=== PATIENT | female | born 1990 | race Caucasian/White ===

== ENCOUNTER 2016-10-04 11:23 | Emergency (ER) | payer BC ==
--- NOTE | 2016-10-04 15:08 | RAD ---
HISTORY: Fall onto left knee COMPARISONS: None VIEWS: 4, Frontal, lateral, axial, and oblique views of the left kidney FINDINGS: BONE DENSITY: Normal. BONES: There is no displaced fracture. JOINTS: There is no arthropathy. There is no suprapatellar joint effusion or lipohemarthrosis. ALIGNMENT: There is no dislocation. SOFT TISSUES: Unremarkable. OTHER FINDINGS: None. IMPRESSION: NO ACUTE OSSEOUS INJURY. IF SYMPTOMS PERSIST, RECOMMEND REPEAT IMAGING.
--- NOTE | 2016-10-04 15:18 | ED ---
Skin Complaint - HPI Summary HPI Summary: Patient presents with left knee laceration with surrounding erythema and knee pain after a fall yesterday. She did not seek care at that time. Laceration is 3cm in length by .4cm in depth. Not able to suture d/t time of injury. Knee pain. She is unable to fully flex at the knee d/t pain. There is marked erythema surrounding the laceration without drainage from the lac. Denies aches , chills or sweats. - History of Current Complaint Chief Complaint: UCLowerExtremity Time Seen by Provider: 10/04/16 14:16 Stated Complaint: KNEE LAC Hx Obtained From: Patient Hx Last Menstrual Period: 09/27/16 Onset/Duration: Started Days Ago Skin Exposure Onset/Duration: Days Ago Timing: Constant Onset Severity: Mild Current Severity: Mild Pain Intensity: 5 Pain Scale Used: 0-10 Numeric Skin Location: Leg - knee Character: Pain, Redness, Painful Aggravating Symptom(s): Nothing Alleviating Symptom(s): Nothing Associated Signs & Symptoms: Negative Related History: Trauma - Allergy/Home Medications Allergies/Adverse Reactions: Allergies Allergy/AdvReac Type Severity Reaction Status Date / Time No Known Allergies Allergy Verified 10/04/16 13:35 Home Medications: Home Medications Ibuprofen [Advil] 1 tab PO Q6HR PRN 10/04/16 [History Confirmed 10/04/16] PMH/Surg Hx/FS Hx/Imm Hx Previously Healthy: Yes Endocrine/Hematology History: Denies: Hx Diabetes, Hx Thyroid Disease Cardiovascular History: Denies: Hx Congestive Heart Failure, Hx Deep Vein Thrombosis, Hx Hypertension , Hx Myocardial Infarction, Hx Pacemaker/ICD Respiratory History: Denies: Hx Asthma, Hx Chronic Obstructive Pulmonary Disease (COPD), Hx Pneumonia, Hx Pulmonary Embolism GI History: Denies: Hx Gall Bladder Disease, Hx Gastrointestinal Bleed, Hx Ulcer, Hx Urosepsis History: Denies: Hx Kidney Stones, Hx Renal Disease Neurological History: Denies: Hx Dementia, Hx Migraine, Hx Seizures, Hx Transient Ischemic Attacks (TIA) Psychiatric History: Denies: Hx Anxiety, Hx Depression, Hx Schizophrenia, Hx Bipolar Disorder - Surgical History Surgery Procedure, Year, and Place: LEFT OVARIAN CYST; WISDOM TEETH - Immunization History Hx Pertussis Vaccination: No Immunizations Up to Date: Unable to Obtain/Confirm Infectious Disease History: No Infectious Disease History: Denies: Hx Clostridium Difficile, Hx Hepatitis, Hx Human Immunodeficiency Virus (HIV), Hx of Known/Suspected MRSA, Hx Shingles, Hx Tuberculosis, Hx Known/ Suspected VRE, Hx Known/Suspected VRSA, History Other Infectious Disease, Traveled Outside the [place] in Last 30 Days - Family History Known Family History: Positive: Unknown - Social History Occupation: Unemployed Lives: With Family Alcohol Use: Occasionally Hx Substance Use: No Substance Use Type: Reports: None Hx Tobacco Use: No Smoking Status (MU): Never Smoked Tobacco Review of Systems Constitutional: Negative Eyes: Negative Cardiovascular: Negative Respiratory: Negative Positive: no symptoms reported, see HPI Positive: Arthralgia Positive: Rash - surrounding erythema, Other - 3cm laceration Neurological: Negative Psychological: Normal All Other Systems Reviewed And Are Negative: Yes Physical Exam Triage Information Reviewed: Yes Vital Signs On Initial Exam: Initial Vitals Temp Pulse Resp BP Pulse Ox 98.7 F 97 16 121/72 98 10/04/16 13:31 10/04/16 13:31 10/04/16 13:31 10/04/16 13:31 10/04/16 13:31 Vital Signs Reviewed: Yes Appearance: Positive: Well-Appearing, No Pain Distress, Well-Nourished Skin: Positive: Warm, Skin Color Reflects Adequate Perfusion, Other - erythema surrounding 3cm laceration to the left anterior knee with no purulent discharge ; warmth; non-pruritic Eyes: Positive: Normal, YULIA Neck: Positive: Supple, Nontender, No Lymphadenopathy Respiratory/Lung Sounds: Positive: Clear to Auscultation, Breath Sounds Present Cardiovascular: Positive: Normal, RRR, Pulses are Symmetrical in both Upper and Lower Extremities Musculoskeletal: Positive: Normal, Strength/ROM Intact Neurological: Positive: Sensory/Motor Intact, Alert, Oriented to Person Place, Time Psychiatric: Positive: Normal AVPU Assessment: Alert Diagnostics - Vital Signs Vital Signs Temp Pulse Resp BP Pulse Ox 10/04/16 13:31 98.7 F 97 16 121/72 98 - Laboratory Lab Statement: Any lab studies that have been ordered have been reviewed, and results considered in the medical decision making process. Course/Dx - Course Course Of Treatment: Knee laceration. erythema surrounding 3cm laceration to the left anterior knee with no purulent discharge; warmth; non-pruritic. knee xray WNL. Knee laceration cleaned well and bandaged. Keflex given for co- existing cellulitis. - Differential Diagnoses - Skin Complaint Differential Diagnoses: Cellulitis, Other - laceration, erisepelas - Diagnoses Provider Diagnoses: Laceration of knee, Cellulitis Discharge - Discharge Plan Condition: Stable Disposition: HOME Prescriptions: Cephalexin CAP* [Keflex CAP*] 500 mg PO QID #28 cap MDD 4 Cephalexin CAP* [Keflex CAP*] 500 mg PO QID #28 cap MDD 4 Fluconazole [Diflucan 150 MG (NF)] 150 mg PO ONCE #1 tab Patient Education Materials: Cellulitis (ED) Referrals: No Primary Care Phys,NOPCP [Primary Care Provider] - Additional Instructions: CONTINUE TO USE BANDAGE TO COVER AREA X 48 HOURS. SYLVIA WRAP X 24 HOURS YOU MAY WALK ON THE LEG IF YOU DEVELOP WORSENING SIGNS OF INFECTION, PLEASE COME BACK TO UC THESE INCLUDE RED STREAKING UP OR DOWN THE LEG, DRAINAGE FROM THE AREA, SWELLING OR IF YOU DEVELOP A FEVER.
== END 2016-10-04 15:35 | disposition home or self-care (01) ==
LOC: UCEAST 11:23
DX: S81.012A Laceration without foreign body, left knee, initial encounter (principal); L03.116 Cellulitis of left lower limb; W19.XXXA Unspecified fall, initial encounter; Y92.9 Unspecified place or not applicable
CPT/HCPCS: 99212; G0463

== ENCOUNTER 2016-10-07 12:11 | Emergency (ER) | payer BC ==
--- NOTE | 2016-10-07 14:28 | UC ---
Allergic Reaction HPI - HPI Summary HPI Summary: Started keflex for L knee cellulitis around an abrasion 10/04/16. Noticed on she started feeling nausea, anxiety, racing heart, and noticed small red patches of skin that would come and go. Also feeling tired and dry-mouthed; has never had this kind of reaction to a medicine in the past. Took dose this morning but no red spots or severe symptoms. Would like to change her medication. - History of Current Complaint Chief Complaint: UCSkin Stated Complaint: POSSIBLE REACTION Time Seen by Provider: 10/07/16 13:58 Hx Obtained From: Patient Hx Last Menstrual Period: 09/27/16 ?: No Onset/Duration: Gradual Onset, Lasting Days Severity Initially: Mild Severity Currently: Mild Pain Intensity: 5 Pain Scale Used: 0-10 Numeric Location: Diffuse Aggrevating Factor(s): Nothing Alleviating Factor(s): Nothing Associated Signs And Symptoms: Positive: Lightheadedness, Nausea, Vomiting. Negative: Chest Pain, Cough Wheezing, Diaphoresis, Difficulty Breathing - Allergies/Home Medications Allergies/Adverse Reactions: Allergies Allergy/AdvReac Type Severity Reaction Status Date / Time Cephalexin [From Keflex] Allergy Rash Verified 10/07/16 13:38 PMH/Surg Hx/FS Hx/Imm Hx Previously Healthy: Yes - Surgical History Surgical History: Yes Surgery Procedure, Year, and Place: LEFT OVARIAN CYST; WISDOM TEETH - Family History Known Family History: Negative: Blood Disorder - Social History Alcohol Use: Occasionally Substance Use Type: None Smoking Status (MU): Never Smoked Tobacco Review of Systems Constitutional: Fatigue Skin: Other - redness L knee Eyes: Negative ENT: Negative Respiratory: Negative Cardiovascular: Palpitations Gastrointestinal: Vomiting, Nausea Genitourinary: Negative Motor: Negative Neurovascular: Negative Musculoskeletal: Negative Neurological: Negative Psychological: Anxious All Other Systems Reviewed And Are Negative: Yes Physical Exam Triage Information Reviewed: Yes Appearance: Well-Appearing, No Pain Distress, Well-Nourished Vital Signs: Initial Vital Signs Temp 98 F 10/07/16 13:35 Pulse 69 10/07/16 13:35 Resp 16 10/07/16 13:35 BP 122/80 10/07/16 13:35 Pulse Ox 100 10/07/16 13:35 Vital Signs Reviewed: Yes Eye Exam: Normal Eyes: Positive: Conjunctiva Clear ENT Exam: Normal ENT: Positive: Normal ENT inspection, Hearing grossly normal, Pharynx normal, TMs normal Dental Exam: Normal Neck exam: Normal Neck: Positive: Supple, Nontender, No Lymphadenopathy Respiratory Exam: Normal Respiratory: Positive: Chest non-tender, Lungs clear, Normal breath sounds, No respiratory distress, No accessory muscle use Cardiovascular Exam: Normal Cardiovascular: Positive: RRR, No Murmur Musculoskeletal Exam: Normal Musculoskeletal: Positive: Strength Intact, ROM Intact Neurological Exam: Normal Neurological: Positive: Alert Psychological Exam: Normal Skin Exam: Other - mild tenderness to skin around abrasion on L anterior knee, no erythema, purulent drainage, or streaking Allergic Reaction Course/Dx - Differential Dx/Diagnosis Provider Diagnoses: L knee cellulitis improving. adverse drug reactions to cephalexin. elevated blood pressure due to anxiety Discharge - Discharge Plan Condition: Stable Disposition: HOME Prescriptions: Sulfamethox/Trimethoprim DS* [Bactrim DS 800/160 TAB*] 1 tab PO BID #14 tab Patient Education Materials: Adverse Drug Reaction (ED) Referrals: No Primary Care Phys,NOPCP [Primary Care Provider] - Additional Instructions: As we discussed, your knee is looking much better than the previous provider documented. It is very likely that you will continue to heal with or without oral antibiotics. You can keep the area covered and apply warm compresses 4 times per day until it feels normal. If you see increasing redness or increasing pain, start the bactrim I sent to the pharmacy and take the whole week. In the future, you can request not to take cephalexin (keflex); there should always be therapeutic alternatives. However, it does not sound like you had a traditional allergy, and you should be able to take other medicines in the same drug class (cephalosporins).
== END 2016-10-07 14:19 | disposition home or self-care (01) ==
LOC: UCEAST 12:11
DX: L03.116 Cellulitis of left lower limb (principal); R11.2 Nausea with vomiting, unspecified; R42 Dizziness and giddiness; T36.1X5A Adverse effect of cephalosporins and other beta-lactam antibiotics, initial encounter; Y92.9 Unspecified place or not applicable; F41.9 Anxiety disorder, unspecified; R03.0 Elevated blood-pressure reading, without diagnosis of hypertension; Z88.1 Allergy status to other antibiotic agents
CPT/HCPCS: 99212; G0463

== ENCOUNTER 2017-09-08 19:32 | Emergency (ER) | payer BC ==
[2017-09-08 19:47] VITALS: BP 120/60
--- NOTE | 2017-09-08 19:53 | UC ---
Skin Complaint HPI - HPI Summary HPI Summary: 27 yo female presents with right wrist insect bite since last night. This morning noticed some increased swelling and itchiness. Later this evening noticed a red streak running up her right arm. No fever, chills, pain or drainage. Is currently taking macrobid for a UTI - History of Current Complaint Chief Complaint: UCGeneralIllness Time Seen by Provider: 09/08/17 19:44 Stated Complaint: BUG BITE/RASH ALONG ARM Hx Obtained From: Patient Hx Last Menstrual Period: 08/09/2017 Onset/Duration: Sudden Onset Current Severity: None Pain Intensity: 0 - Allergy/Home Medications Allergies/Adverse Reactions: Allergies Allergy/AdvReac Type Severity Reaction Status Date / Time MS Cephalexin [From Keflex] Allergy Rash Verified 09/08/17 19:40 Home Medications: Home Medications Nitrofurantoin Macrocrystal [Nitrofurantoin] 100 mg PO BID 09/08/17 [History Confirmed 09/08/17] diPHENhydraMINE PO* [Benadryl PO 25 MG TAB*] 25 mg PO Q6H PRN 09/08/17 [History Confirmed 09/08/17] Review of Systems Constitutional: Negative Skin: Rash Respiratory: Negative Cardiovascular: Negative Gastrointestinal: Negative Neurovascular: Negative Neurological: Negative Psychological: Negative All Other Systems Reviewed And Are Negative: Yes PMH/Surg Hx/FS Hx/Imm Hx Psychological History: Anxiety - Surgical History Surgical History: Yes Surgery Procedure, Year, and Place: LEFT OVARIAN CYST; WISDOM TEETH - Family History Known Family History: Positive: None Negative: Blood Disorder - Social History Occupation: Employed Full-time Lives: With Family Alcohol Use: Weekly Substance Use Type: None Smoking Status (MU): Never Smoked Tobacco Physical Exam - Summary Physical Exam Summary: GENERAL: NAD. WDWN. No pain distress. SKIN: Right wrist: insect bite with surround 4.0cm mild erythema and warm. Mildly erythematous streak extending from this site up to right elbow. No bleeding or drainage. NECK: Supple. Nontender. No lymphadenopathy. CHEST: No accessory muscle use. Breathing comfortably and in no distress. CV: RRR. Without m/r/g. MSK: Right wrist and fingers FROM. NEURO: Alert. CN II-XII grossly intact. PSYCH: Age appropriate behavior. Triage Information Reviewed: Yes Vital Signs: Initial Vital Signs Temp 99.0 F 09/08/17 19:39 Pulse 87 09/08/17 19:39 Resp 18 09/08/17 19:39 BP 120/60 09/08/17 19:39 Pulse Ox 97 09/08/17 19:39 Course/Dx - Course Course Of Treatment: Insect bite to right wrist with cellulitis. Pt says that she has taken amoxicillin in the past without issue and is pretty sure augmentin has been alright - just Keflex that gives her a rash. Monitor for increased signs of redness, streaking, pain, fever, or swelling - if develop go to ED - Diagnoses Provider Diagnoses: Right wrist insect bite. Right arm cellulitis Discharge - Sign-Out/Discharge Documenting (check all that apply): Discharge/Admit/Transfer - Discharge Plan Condition: Stable Disposition: HOME Prescriptions: Amoxicillin/Clavulanate TAB* [Augmentin TAB 875*] 875 mg PO BID #20 tab Patient Education Materials: Cellulitis (DC) Referrals: Gianna Grier MD [Primary Care Provider] - Additional Instructions: If you develop a fever, shortness of breath, chest pain, new or worsening symptoms - please call your PCP or go to the ED. 1) If the redness worsens or if you develop fever/chills - please go to the ER - Billing Disposition and Condition Condition: STABLE Disposition: HOME
== END 2017-09-08 20:10 | disposition home or self-care (01) ==
LOC: UCEAST 19:32
DX: S60.861A Insect bite (nonvenomous) of right wrist, initial encounter (principal); L03.113 Cellulitis of right upper limb; W57.XXXA Bitten or stung by nonvenomous insect and other nonvenomous arthropods, initial encounter; Y93.9 Activity, unspecified; Y92.9 Unspecified place or not applicable; Z88.1 Allergy status to other antibiotic agents
CPT/HCPCS: 99212; G0463